=== PATIENT | female | born 1955 | race Caucasian/White ===

== ENCOUNTER 2017-03-05 09:06 | Inpatient (IN) | payer OTHER ==
[~2017-03-05] VITALS: Ht 162.6 cm; Wt 150.3 kg
[~2017-03-05 09:06] MED LIST: ACT15; ACT15 PO; ACT30 PO; ALBUTEROL0.09 MG/A2 IH; AMA1 PO; AMARYL4 MG PO; AMLODIPINE BESYL5 M1 PO; AMLODIPINE5 MG PO; ASPIR 8181 MG PO; ASPIR-LOW81 M1; ASPIRIN ADULT L81 MG PO; AUGMENTIN1 TA2 PO; CARVEDILOL25 M1 PO; CARVEDILOL25 MG PO; CORE25; COUMADIN5 MG PO; FAMILY PHARMAC325 MG PO; FER300; FUROCOT20 MG PO; FUROSEMIDE20 MG PO; FUROSEMIDE40 MG PO; GLIMEPIRIDE4 MG PO; GOOD SENSE ASPI81 M3 PO; K10 PO; L40 PO; LAC PO; LISINOPRIL40 MG PO; MEDDP PO; METFORMIN HCL850 MG PO; METFORMIN850 M1 PO; METOPROLOL TART25 M1 PO; NOR5; NOR5 PO; PIOGLITAZONE30 M1 PO; POTASSIUM CHLO10 MEQ PO; PRI20; PROTONIX40 MG PO; VITAMIN D22000 I1 PO; VITAMIN D2400 IU PO; ZES20; ZESTRIL20 PO; ZOC10 PO
--- NOTE | 2017-03-05 09:20 | NUR ---
PT C/O CHEST PAIN / SOB SINCE YESTERDAY. PLACED PT ON CM, VSS. PT'S SDIERAILS UP X 2. PT GIVEN CALL LIGHT. AWAITING DR RODRIGEZ.
--- NOTE | 2017-03-05 09:43 | NUR ---
DR MEAD AT BEDSIDE
--- NOTE | 2017-03-05 10:11 | NUR ---
PXRAY DONE AT BEDSIDE
[2017-03-05 10:18] LABS: BASOPHIL % 0.4 % (0-2)
[2017-03-05 10:23] LABS: CALCIUM 7.9 mg/dL (8.5-10.1); CARBON DIOXIDE 31.5 mmol/L (21-32); CHLORIDE SERUM 107 mmol/L (98-107); CREATININE SERUM 0.8 mg/dL (0.6-1.0); GFR1 > 60 mL/min; GLUCOSE SERUM 127 mg/dL (74-106); POTASSIUM SERUM 3.6 mmol/L (3.5-5.1); SODIUM SERUM 145 mmol/L (136-145)
[2017-03-05 10:28] LABS: ALBUMIN 3.4 g/dL (3.4-5.0); ALKALINE PHOSPHATASE 81 U/L (46-116); ALT/SGPT 30 U/L (14-59); AST/SGOT 16 U/L (15-37); BILIRUBIN TOTAL 1.39 mg/dL (0.20-1.00); TOTAL PROTEIN, SERUM 6.6 g/dL (6.4-8.2)
[2017-03-05 10:30] LABS: PLATELET COUNT 99 x10^3mcL (130-400); RED CELL DISTRIBUTION WIDTH 14.8 % (11.5-14.5)
[2017-03-05] MEDS ORDERED: [UNRECOGNIZED DRUG - OTHER] (11:16)
[2017-03-05] MEDS ORDERED: CARVEDILOL25 M1 PO (11:17)
--- NOTE | 2017-03-05 11:33 | NUR ---
MRSA SPECIMEN TAKEN AND SENT TO LAB
--- NOTE | 2017-03-05 11:55 | NUR ---
REPORT GIVEN TO FAY
[2017-03-05 12:22] VITALS: Ht 162.6 cm; Wt 150.3 kg
--- NOTE | 2017-03-05 12:30 | NUR ---
REPORT GIVEN TO PIPE AT BEDSIDE
--- NOTE | 2017-03-05 12:30 | NUR ---
RECEIVED PT FROM ER VIA WHEELCHAIR TO . PT ABLE TO AMBULATE WITH CANE TO BED. MADE COMFORTABLE, ORIENT TO ROOM AND CALL LIGHT SYSTEM. PT AWAKE AND ALERT. TEMP 97.1. TELE #13 PLACED SINUS RHYTHM RATE 70. REPORTS "CHEST PAIN GOING THROUGH TO MY BACK AND SOB STARTED LAST NIGHT 9PM. I TOOK NEBULIZER TX AND USE HOME OXYGEN 1.5L NC BUT IT DID NOT HELP. I WAS COUGHING UP GREEN PHLEGM. I HAD MY FAMILY BRING ME TO THE ER." DENIES RADIATION OF PAIN TO NECK OR ARM. ABD ROUNDED BUT SOFT, BOWEL TONES PRESENT. LBM THIS AM. VOIDING QS. INSTRUCTED WITH NEED FOR URINE SAMPLE. PT OBESE QC=326.6 LBS. NO PITTING EDEMA. PULSES PRESENT. SCD IN PLACE. SALINE LOCK LFA IN PLACE. SIDE RAILS UP X2. CALL LIGHT IN REACH.
[2017-03-05 13:29] VITALS: BP 152/63
--- NOTE | 2017-03-05 13:30 | NUR ---
PO MEDS GIVEN ORDERED FOR HTN. IVF NORMAL SALINE STARTED AT 100CC/HR VIA SITE LFA. FAMILY AT BEDSIDE.
[2017-03-05 13:37] LABS: T3 TOTAL 1.03 ng/mL
[2017-03-05 13:38] LABS: CHOLESTEROL/HDL RATIO 3.3; MAGNESIUM 1.9 mg/dL (1.8-2.4); PHOSPHOROUS 3.8 mg/dL (2.5-4.9)
[2017-03-05 13:43] LABS: FREE T4 1.51 ng/dL (0.76-1.46); FREE THYROXINE INDEX 2.5 ug/dL (1.4-4.5); T4(THYROXINE) 7.7 ug/dL (4.7-13.3)
[2017-03-05 14:23] VITALS: BP 152/63
--- NOTE | 2017-03-05 14:33 | NUR ---
JESS COMPLETED. RT ORDERS PER DR WANG.
[2017-03-05 14:50] VITALS: BP 152/63
--- NOTE | 2017-03-05 16:13 | NUR ---
DR WANG HERE. DISCUSSED PT "ALLERGY" TO LEVAQUIN AND CODEINE. DR STATES IS NOT AN ALLERGY BUT A SENSITIVITY. ORDERS TO PRE MED WITH BENADRYL 25MG IVP PRIOR. DISCUSSED WITH PT. AGREEABLE TO TAKE BENADRYL AT THIS TIME. MED WITH BENADRYL 25MG IVP. CALL LIGHT IN REACH.
--- NOTE | 2017-03-05 16:20 | NUR ---
MED WITH NORCO ES ORDERED. IV LEVAQUIN STARTED. WILL WATCH FOR S/S OF RASH OR ITCHING.
--- NOTE | 2017-03-05 17:30 | NUR ---
PT RESTING. STATES "CHEST PRESSURE IS BETTER 3/10. NO ITCHING OR RASH. I GOT SOME SLEEP." XRG=[id number]. IV CONTINUES PATENT.
--- NOTE | 2017-03-05 17:50 | NUR ---
PT UP TO BATHROOM AND VOIDED. SAMPLE TO LAB ORDERED. BACK TO BED. MADE COMFORTABLE. IV CONTINUES PATENT.
[2017-03-05 17:55] VITALS: BP 145/52
--- NOTE | 2017-03-05 18:10 | NUR ---
PT TOLERATED DINNER MEAL WELL. LABS DRAWN. REPORTS "JUST DULL PRESSURE TO CHEST." DENIES ITCHING OR RASH AT THIS TIME. CALL LIGHT IN REACH.
[2017-03-05 19:02] LABS: UA SPECIFIC GRAVITY 1.025 (1.005-1.035); microscopic required? YES; urine erythrocyte 2+ (NEGATIVE)
[2017-03-05 19:12] LABS: AMPHETAMINE QUAL UR NONE DETECTED (NEG <=1000)
--- NOTE | 2017-03-05 19:20 | NUR ---
PATIENT RECEIVED AWAKE, ALERT, AND ORIENTED X 4. NO DISTRESS NOTED. PATIENT DENIES SOB AND CHEST PAIN AT THIS TIME. IV SITE TO LEFT FOREARM, PATENT AND INTACT. IV FLUID INFUSING PER DOCTOR'S ORDER. BED IN LOWEST POSITION. CALL LIGHT WITHIN REACH. WILL CONTINUE TO MONITOR.
[2017-03-05 20:33] VITALS: BP 145/62
--- NOTE | 2017-03-06 05:13 | NUR ---
PATIENT RESTED THROUGHOUT THE NIGHT. NO DISTRESS NOTED. MEDICATED FOR PAIN WITH NORCO PO X 1 PER DOCTOR'S PRN ORDER. SAFETY AND COMFORT MEASURES MAINTAINED. BED IN LOWEST POSITION. CALL LIGHT WITHIN REACH. WILL CONTINUE TO MONITOR.
--- NOTE | 2017-03-06 05:39 | NUR ---
DR ZUÑIGA MADE AWARE OF PATIENT'S ABG VALUES. WILL CONTINUE TO MONITOR.
[2017-03-06 06:37] LABS: BASOPHIL % 0.5 % (0-2); RED CELL DISTRIBUTION WIDTH 14.4 % (11.5-14.5)
[2017-03-06 06:45] LABS: PLATELET COUNT 85 x10^3mcL (130-400)
[2017-03-06 06:47] LABS: PHOSPHOROUS 4.2 mg/dL (2.5-4.9)
--- NOTE | 2017-03-06 06:52 | NUR ---
PATIENT BO=277/78 HR=64. COVERED WITH LASIX 40MG AND AMLODIPINE 5MG PER DOCTOR KATHLEEN. WILL CONTINUE TO MONITOR AND ENDORSE TO NEXT SHIFT NURSE.
[2017-03-06 07:01] LABS: ALKALINE PHOSPHATASE 68 U/L (46-116); ALT/SGPT 22 U/L (14-59); AST/SGOT 16 U/L (15-37); CALCIUM 7.8 mg/dL (8.5-10.1); CARBON DIOXIDE 29.8 mmol/L (21-32); CHLORIDE SERUM 108 mmol/L (98-107); CREATININE SERUM 0.7 mg/dL (0.6-1.0); GFR1 > 60 mL/min; GLUCOSE SERUM 80 mg/dL (74-106); POTASSIUM SERUM 3.5 mmol/L (3.5-5.1); SODIUM SERUM 144 mmol/L (136-145)
[2017-03-06 07:02] LABS: TOTAL PROTEIN, SERUM 5.8 g/dL (6.4-8.2)
[2017-03-06 07:03] LABS: ALBUMIN 2.8 g/dL (3.4-5.0)
[2017-03-06 07:16] VITALS: BP 182/78
[2017-03-06 08:00] VITALS: BP 124/55
--- NOTE | 2017-03-06 08:00 | NUR ---
INITIAL ASSESSMENT PROVIDED. PATIENT ALERT AND ORIENTED X4 BREATHING UNLABORED AND NO COMPLAINTS OF PAIN AT THIS TIME. VS WNL. WILL CONTINUE TO MONITOR.
[2017-03-06 09:21] VITALS: BP 129/50
--- NOTE | 2017-03-06 09:37 | NUR ---
PATIENT READING BIBLE, ADMINISTETED MEDICATION ORDERED. NO COMPLAINTS OF SOB OR CHEST PAIN AT THIS TIME. BREATHING UNLABORED, NO SIGNS OF DISTRESS.
--- NOTE | 2017-03-06 11:20 | NUR ---
PT SITTING WATCHING TV. BREATHING UNLABORED NO SIGNS OF DISTRESS. NO COMPLAINTS OF PAIN AT THIS TIME
--- NOTE | 2017-03-06 12:43 | NUR ---
PATIENT SITTING UP, EATING. NO SIGNS OF DISTRESS, BREATHING UNLABORED, WILL CONTINUE TO MONITOR.
--- NOTE | 2017-03-06 13:40 | NUR ---
PATIENT FAMILY VISITING. SMILING AND TALKING WITH FAMILY BREATHING UNLABORED, NO COMPLAINTS OF PAIN AT THIS TIME.
[2017-03-06 17:49] VITALS: BP 158/55
[2017-03-06 18:12] VITALS: BP 180/77
--- NOTE | 2017-03-06 19:17 | NUR ---
PATIENT STATED SHE WAS STARTING TO FEEL LIGHT HEADED, BP 187/73, BP MEDS GIVEN (SEE EMAR). REMAINED AT PATIENT BEDSIDE, STATED SHE IS FEELING BETTER NOW, MINIMAL ASSISTANCE TO SIT UP IN CHAIR. WILL ENDORSE CARE.
--- NOTE | 2017-03-06 19:36 | NUR ---
RECEIVED PATIENT IN BED AWAKE, ALERT AND ORIENTED DENIES CHEST DISCOMFORT THIS TIME, BREATHING EASY AND NONLABOR. TELE# 13, NSR ON MONITOR. IV TO LFA INTACT AND INFUSING WELL. WILL CONTINUE TO MONITOR. CALL LIGHT WITHIN REACH.
--- NOTE | 2017-03-06 20:12 | NUR ---
TELE MONITOR DISCONTINUED PER MD
[2017-03-06 20:53] VITALS: BP 174/76
--- NOTE | 2017-03-06 21:25 | NUR ---
LATEST BP AFTER BP MEDS GIVEN-174/76, WILL CONTINUE TO MONITOR.
[2017-03-07] VITALS (7 sets, daily range): BP systolic 121–182; BP diastolic 35–76
--- NOTE | 2017-03-07 00:01 | NUR ---
IV TO LFA INFILTRATED AND REINSERTED TO RFA INTACT AND INFUSING WELL. WILL CONTINUE TO MONITOR.
--- NOTE | 2017-03-07 05:23 | NUR ---
SLEPT FAIRLY, CHECKED AT INTERVALS FOR NEEDS AND SAFETY. ALL NEEDS ATTENDED.
--- NOTE | 2017-03-07 06:15 | NUR ---
BLOOD PRESSURE CHECKED- 182/76, LOPRESSOR 12.5 MG PO AND NORVASC 5MG PO GIVEN. WILL ENDORSE CONTINOUS MONITORING TO AM SHIFT.
[2017-03-07 07:00] LABS: BASOPHIL % 0.5 % (0-2); RED CELL DISTRIBUTION WIDTH 14.5 % (11.5-14.5)
[2017-03-07 07:06] LABS: PLATELET COUNT 80 x10^3mcL (130-400)
[2017-03-07 07:34] LABS: CARBON DIOXIDE 30.4 mmol/L (21-32); CHLORIDE SERUM 106 mmol/L (98-107); CREATININE SERUM 0.6 mg/dL (0.6-1.0); GFR1 > 60 mL/min; GLUCOSE SERUM 95 mg/dL (74-106); POTASSIUM SERUM 3.6 mmol/L (3.5-5.1); SODIUM SERUM 142 mmol/L (136-145)
--- NOTE | 2017-03-07 07:50 | NUR ---
RECEIVED PATIENT AAOX4, HAVING US OF ABD DONE AT BEDSIDE, NO DISTRESS NOTED, ABLE TO COMMUNICATE AND FOLLOW COMMANDS AND DENIES CHEST PAIN. PALPABLE PULSES TO BUE/BLE AND SCDS IN PLACE. RESPIRAITONS EVEN AND UNLABORED, ON 2L O2 NC AND DENIES SOB. DENIES N/V/D. VOIDS FREELY WITH BRP USING CANE AND UP WITH MINIMAL ASSIST. DENIES PAIN. IV TO RFA CDI. BED TO LOWEST POSITION, CALL LIGHT AND BELONGINGS WITHIN REACH, AND WILL CONTINUE TO MONITOR.
--- NOTE | 2017-03-07 11:54 | NUR ---
PATIENT SITTING ON SIDE OF CHAIR AAOX4, NO DISTRSS NOTED, RESPIRAITONS EVEN AND UNLABORED, CALL LIGHT AND BELONGINGS WITHIN REACH, AND WILL CONTINUE TO MONITOR.
--- NOTE | 2017-03-07 14:31 | NUR ---
PATIENT SITTING UP IN BED AAOX4, NO DISTRESS NOTED, RESPIRATIONS EVEN AND UNLABORED, CALL LIGHT AND BELONGINGS WITHIN REACH, AND WILL CONTINUE TO MONITOR.
--- NOTE | 2017-03-07 15:30 | NUR ---
DIABETIC TEACHING DONE, ALL QUESTIONS AND CONCERNS ADDRESSED, CALL LIGHT WITHIN REACH, AND WILL CONTINUE TO MONITOR.
--- NOTE | 2017-03-07 18:13 | NUR ---
PER TO GIVE BENADRYL 25MG IV Q8H PRN BEFORE GIVING LEVAQUIN, WILL CONTINUE TO MONITOR.
--- NOTE | 2017-03-07 19:03 | NUR ---
PATIENT SITTING UP IN BED AAOX4, NO DISTRESS NOTED, RESPRIATIONS EVEN EVEN AND UNLABORED, ON 2L O2 NC AND DENIES SOB, IF TO RFA CDI, CALL LIGHT AND BELONGINGS WITHIN REACH, AND WILL ENDORSE TO NIGHT NURSE.
--- NOTE | 2017-03-07 19:50 | NUR ---
PT RESTING IN BED. AOX4. VERBAL WITH CLEAR SPEECH. MAKES NEEDS KNOWN. DENIES ANY SOB. ON O2 2L VIA NC 95%. LUNGS DIMINISHED. NO S/S OF RESPIRATORY DISTRESS NOTED. BOWEL SOUNDS ACTIVE. ABD SOFT AND ROUND. LAST BM 03/07/17. IV TO RIGHT FA PATENT AND INTACT. NO S/S OF INFECTION NOTED. SKIN WARM AND DRY. NO EDEMA NOTED. PULSES PALPABLE. DENIES ANY PAIN AT THIS TIME. NO S/S OF DISTRESS OR DISCOMFORT NOTED. CALL LIGHT WITHIN REACH. WILL CONTINUE TO MONITOR.
[2017-03-07] MEDS ORDERED: NOR10 PO (21:52)
[2017-03-07] MEDS ORDERED: LAC PO (21:54)
[2017-03-07] MEDS ORDERED: COMBIVENT RESPI1 SP1 IH (22:08)
--- NOTE | 2017-03-08 00:56 | NUR ---
PT STATES HEADACHE IS FEELING BETTER, BUT C/O NOT BEING ABLE TO SLEEP. DR. MACIAS UPDATED AND AWARE. AWAITING NEW ORDERS.
--- NOTE | 2017-03-08 03:12 | NUR ---
PT RESTING IN BED WITH EYES CLOSED. BREATHING EQUAL AND UNLABORED. NO S/S OF RESPIRATORY DISTRESS NOTED. REMAINS ON O2 2L VIA NC. IV INTACT TO RIGHT FA. RESTING COMFORTABLY WITH RELAXED FACIAL FEATURES. CALL LIGHT WITHIN REACH. WILL CONTINUE TO MONITOR.
[2017-03-08 05:25] VITALS: BP 142/73
--- NOTE | 2017-03-08 05:50 | NUR ---
PT RESTING WITH EYES CLOSED. EASILY AROUSED WHEN NAME CALLED. REMAINS ON O2 2L VIA NC. NO S/S OF RESPIRATORY DISTRESS NOTED. IV PATENT AND INFUSING WELL. PT SLEPT WELL AFTER GIVEN VISTARIL. SWALLOWED ROUTINE MEDICATIONS WITHOUT DIFFICULTY. NO S/S OF DISTRESS OR DISCOMFORT NOTED. CALL LIGHT WITHIN REACH. WILL CONTINUE TO MONITOR.
--- NOTE | 2017-03-08 06:31 | NUR ---
RECEIVED ABG RESULTS PH 7.40, PCO2 46.2, PCO2 46.2, PO2 61.3, HCO3 28.2. DR. BENZ UPDATED AND AWARE OF ABG RESULTS WHICH WAS DONE WITH PT ON VIA NC. NO NEW ORDERS.
[2017-03-08 06:36] LABS: BASOPHIL % 0.1 % (0-2)
[2017-03-08 06:41] LABS: PLATELET COUNT 102 x10^3mcL (130-400); RED CELL DISTRIBUTION WIDTH 14.6 % (11.5-14.5)
--- NOTE | 2017-03-08 07:15 | NUR ---
PT SEEN JUST CAME OUT FROM BATHROOM. PT WALKED WITH CANE WITH STEADY GAIT. PT STATED FEELING MILD SOB AFTER AMBULATORY. PT REPORT MILD CHEST PAIN WHEN PT FEELING SOB. PT BREATHING ON O2 2L VIA NC, EVEN, UNLABORED. IV SITE PATENT, INTACT. SALINE LOCK AT THIS TIME.
[2017-03-08 07:50] VITALS: BP 165/75
[2017-03-08 09:03] VITALS: BP 165/75
[2017-03-08] MEDS ORDERED: LEVOFLOXACIN500 M1 PO (09:16)
[2017-03-08 09:17] VITALS: BP 159/69
[2017-03-08] MEDS ORDERED: NOR10T PO (09:38)
[2017-03-08] MEDS ORDERED: COLACE100 MG PO (09:39)
== END 2017-03-08 10:33 | disposition home or self-care (01) | DRG 203 ==
LOC: ED 09:06 → DU 11:08 → MU 11:08 → DU 12:21 → MU 03-06 20:12
PROVIDERS: Emergency Medicine; ADMIT Family Medicine
DX: M94.0 Chondrocostal junction syndrome [Tietze] (principal); J96.01 Acute respiratory failure with hypoxia; E43 Unspecified severe protein-calorie malnutrition; I50.43 Acute on chronic combined systolic (congestive) and diastolic (congestive) heart failure; D69.6 Thrombocytopenia, unspecified; J96.02 Acute respiratory failure with hypercapnia; Z68.43 Body mass index [BMI] 50.0-59.9, adult; J44.1 Chronic obstructive pulmonary disease with (acute) exacerbation; E66.01 Morbid (severe) obesity due to excess calories; I07.1 Rheumatic tricuspid insufficiency; B18.2 Chronic viral hepatitis C; Z79.82 Long term (current) use of aspirin; Z79.84 Long term (current) use of oral hypoglycemic drugs; B19.20 Unspecified viral hepatitis C without hepatic coma; Z88.6 Allergy status to analgesic agent; Z88.1 Allergy status to other antibiotic agents
CPT/HCPCS: 36600; 80307; 82962; 83880; 84439; J1200; J1956; J2920; J7030; J7620; J7626; Q0177

== ENCOUNTER 2017-04-14 10:45 | Inpatient (IN) | payer OTHER ==
[~2017-04-14] VITALS: Ht 162.6 cm; Wt 150.8 kg
[~2017-04-14 10:45] MED LIST changes: +COLACE100 MG PO; +COMBIVENT RESPI1 SP1 IH; +LEVOFLOXACIN500 M1 PO; +NOR10 PO; +NOR10T PO; +[UNRECOGNIZED DRUG - OTHER]
[2017-04-14 11:51] LABS: BASOPHIL % 0.4 % (0-2)
[2017-04-14 11:57] LABS: CALCIUM 8.2 mg/dL (8.5-10.1); CARBON DIOXIDE 30.5 mmol/L (21-32); CHLORIDE SERUM 104 mmol/L (98-107); CREATININE SERUM 0.7 mg/dL (0.6-1.0); GFR1 > 60 mL/min; GLUCOSE SERUM 165 mg/dL (74-106); POTASSIUM SERUM 3.6 mmol/L (3.5-5.1); SODIUM SERUM 142 mmol/L (136-145)
[2017-04-14 12:01] LABS: ALBUMIN 3.7 g/dL (3.4-5.0); ALKALINE PHOSPHATASE 97 U/L (46-116); ALT/SGPT 27 U/L (14-59); AST/SGOT 22 U/L (15-37); BILIRUBIN TOTAL 1.7 mg/dL (0.20-1.00); LIPASE 133 IU/L (73-393); MAGNESIUM 1.8 mg/dL (1.8-2.4); TOTAL PROTEIN, SERUM 7.2 g/dL (6.4-8.2)
[2017-04-14 12:10] LABS: PLATELET COUNT 89 x10^3mcL (130-400); RED CELL DISTRIBUTION WIDTH 14.7 % (11.5-14.5)
[2017-04-14 12:30] LABS: microscopic required? YES; urine erythrocyte TRACE (NEGATIVE)
[2017-04-14 14:36] LABS: CHOLESTEROL/HDL RATIO 3.1
[2017-04-14 14:41] LABS: T3 TOTAL 1.01 ng/mL
[2017-04-14 14:46] LABS: FREE T4 1.65 ng/dL (0.76-1.46); FREE THYROXINE INDEX 3.3 ug/dL (1.4-4.5); T4(THYROXINE) 9.3 ug/dL (4.7-13.3)
[2017-04-14 14:49] VITALS: BP 170/83
[2017-04-14 19:01] VITALS: BP 143/74
[2017-04-14 20:58] VITALS: BP 152/68
[2017-04-15 05:19] VITALS: BP 153/60
[2017-04-15 06:15] LABS: BASOPHIL % 0.3 % (0-2)
[2017-04-15 06:34] LABS: CALCIUM 8.4 mg/dL (8.5-10.1); CARBON DIOXIDE 29.7 mmol/L (21-32); CHLORIDE SERUM 108 mmol/L (98-107); CREATININE SERUM 0.7 mg/dL (0.6-1.0); GFR1 > 60 mL/min; GLUCOSE SERUM 136 mg/dL (74-106); MAGNESIUM 2.1 mg/dL (1.8-2.4); PHOSPHOROUS 4.6 mg/dL (2.5-4.9); POTASSIUM SERUM 3.7 mmol/L (3.5-5.1); SODIUM SERUM 146 mmol/L (136-145)
[2017-04-15 06:43] LABS: PLATELET COUNT 108 x10^3mcL (130-400); RED CELL DISTRIBUTION WIDTH 14.8 % (11.5-14.5)
[2017-04-15 12:00] VITALS: BP 127/49
[2017-04-15 18:06] VITALS: BP 145/65
[2017-04-16 07:30] LABS: BASOPHIL % 0.3 % (0-2)
[2017-04-16 07:45] LABS: CALCIUM 7.8 mg/dL (8.5-10.1); CARBON DIOXIDE 29.1 mmol/L (21-32); CHLORIDE SERUM 107 mmol/L (98-107); CREATININE SERUM 0.9 mg/dL (0.6-1.0); GFR1 > 60 mL/min; GLUCOSE SERUM 155 mg/dL (74-106); MAGNESIUM 1.9 mg/dL (1.8-2.4); PHOSPHOROUS 3.8 mg/dL (2.5-4.9); POTASSIUM SERUM 3.3 mmol/L (3.5-5.1); SODIUM SERUM 144 mmol/L (136-145)
[2017-04-16 07:47] LABS: RED CELL DISTRIBUTION WIDTH 14.9 % (11.5-14.5)
[2017-04-16 07:48] LABS: PLATELET COUNT 94 x10^3mcL (130-400)
[2017-04-16 09:55] VITALS: BP 159/67
[2017-04-16 13:23] VITALS: BP 127/52
[2017-04-16 17:48] VITALS: BP 140/62
[2017-04-16 20:53] VITALS: BP 152/69
[2017-04-17 05:56] VITALS: BP 139/59
[2017-04-17 06:53] LABS: BASOPHIL % 0.5 % (0-2); RED CELL DISTRIBUTION WIDTH 14.4 % (11.5-14.5)
[2017-04-17 06:55] LABS: PLATELET COUNT 86 x10^3mcL (130-400)
[2017-04-17 07:07] LABS: CHLORIDE SERUM 107 mmol/L (98-107); CREATININE SERUM 0.7 mg/dL (0.6-1.0); GFR1 > 60 mL/min; GLUCOSE SERUM 118 mg/dL (74-106); MAGNESIUM 1.9 mg/dL (1.8-2.4); PHOSPHOROUS 3.3 mg/dL (2.5-4.9); POTASSIUM SERUM 3.4 mmol/L (3.5-5.1); SODIUM SERUM 143 mmol/L (136-145)
[2017-04-17 10:20] VITALS: BP 129/67
[2017-04-17 16:35] VITALS: BP 146/58
[2017-04-17 20:57] VITALS: BP 142/52
[2017-04-18 05:09] VITALS: BP 135/66
[2017-04-18 06:24] LABS: BASOPHIL % 0.3 % (0-2)
[2017-04-18 06:27] LABS: CALCIUM 8.3 mg/dL (8.5-10.1); CARBON DIOXIDE 32.3 mmol/L (21-32); CHLORIDE SERUM 107 mmol/L (98-107); CREATININE SERUM 0.7 mg/dL (0.6-1.0); GFR1 > 60 mL/min; GLUCOSE SERUM 113 mg/dL (74-106); PHOSPHOROUS 3.5 mg/dL (2.5-4.9); POTASSIUM SERUM 3.7 mmol/L (3.5-5.1); SODIUM SERUM 145 mmol/L (136-145)
[2017-04-18 07:16] LABS: PLATELET COUNT 89 x10^3mcL (130-400); RED CELL DISTRIBUTION WIDTH 14.7 % (11.5-14.5)
[2017-04-18 08:52] VITALS: BP 141/57
[2017-04-18] MEDS ORDERED: TOR10 PO (15:05)
[2017-04-18] MEDS ORDERED: PROTONIX40 MG/Pac1 PO (15:05)
[2017-04-18] MEDS ORDERED: COL100 PO (15:06)
[2017-04-18] MEDS ORDERED: DUL5 PO (15:06)
[2017-04-18 15:29] VITALS: BP 141/57
== END 2017-04-18 18:43 | disposition home health service (06) | DRG 227 ==
LOC: ED 10:45 → DU 13:51 → MU 13:51 → DU 14:33 → MU 04-15 15:18
PROVIDERS: Emergency Medicine; Surgery; ADMIT Family Medicine
PROC: 0WQF0ZZ Repair Abdominal Wall, Open Approach (ICD-10-PCS; principal; 2017-04-15 07:30)
DX: K42.0 Umbilical hernia with obstruction, without gangrene (principal); D68.69 Other thrombophilia; N17.0 Acute kidney failure with tubular necrosis; E11.51 Type 2 diabetes mellitus with diabetic peripheral angiopathy without gangrene; D69.6 Thrombocytopenia, unspecified; Z68.43 Body mass index [BMI] 50.0-59.9, adult; J44.9 Chronic obstructive pulmonary disease, unspecified; I10 Essential (primary) hypertension; E78.5 Hyperlipidemia, unspecified; B18.2 Chronic viral hepatitis C; F11.21 Opioid dependence, in remission; Z79.82 Long term (current) use of aspirin; Z87.891 Personal history of nicotine dependence; Z79.84 Long term (current) use of oral hypoglycemic drugs
CPT/HCPCS: 82962; 83880; 84439; 94150; 97110-GP; 97116-GP; 97530-GP; J0690; J1885; J2250; J2270; J2405; J3010; J3490; J7030; J7040; J7042; P9035; Q0092

== ENCOUNTER 2017-05-12 10:09 | Emergency (ER) | payer OTHER ==
[~2017-05-12] VITALS: Ht 162.6 cm; Wt 148.8 kg
[~2017-05-12 10:09] MED LIST changes: +COL100 PO; +DUL5 PO; +PROTONIX40 MG/Pac1 PO; +TOR10 PO
[2017-05-12 11:18] LABS: BASOPHIL % 0.5 % (0-2)
[2017-05-12 11:57] LABS: CALCIUM 8.4 mg/dL (8.5-10.1); CARBON DIOXIDE 29.9 mmol/L (21-32); CHLORIDE SERUM 108 mmol/L (98-107); CREATININE SERUM 0.9 mg/dL (0.6-1.0); GFR1 > 60 mL/min; GLUCOSE SERUM 90 mg/dL (74-106); POTASSIUM SERUM 3.9 mmol/L (3.5-5.1); SODIUM SERUM 145 mmol/L (136-145)
[2017-05-12 12:00] LABS: PLATELET COUNT 93 x10^3mcL (130-400); RED CELL DISTRIBUTION WIDTH 14.6 % (11.5-14.5)
[2017-05-12 12:01] LABS: ALBUMIN 3.5 g/dL (3.4-5.0); ALKALINE PHOSPHATASE 90 U/L (46-116); ALT/SGPT 33 U/L (14-59); AST/SGOT 33 U/L (15-37); BILIRUBIN TOTAL 0.98 mg/dL (0.20-1.00); LIPASE 160 IU/L (73-393)
[2017-05-12 17:01] VITALS: BP 154/64
== END 2017-05-12 19:55 | disposition home or self-care (01) ==
LOC: ED 10:09
PROVIDERS: Emergency Medicine
DX: R07.89 Other chest pain (principal); R19.7 Diarrhea, unspecified; R06.02 Shortness of breath; R05 Cough; R42 Dizziness and giddiness; J44.9 Chronic obstructive pulmonary disease, unspecified; I11.0 Hypertensive heart disease with heart failure; I50.9 Heart failure, unspecified; E11.9 Type 2 diabetes mellitus without complications; E66.01 Morbid (severe) obesity due to excess calories; Z88.5 Allergy status to narcotic agent; Z79.899 Other long term (current) drug therapy; Z88.1 Allergy status to other antibiotic agents; Z79.84 Long term (current) use of oral hypoglycemic drugs; Z79.82 Long term (current) use of aspirin; Z87.891 Personal history of nicotine dependence; Z98.890 Other specified postprocedural states
CPT/HCPCS: 82962; 83880; J1885; J7030; Q0092; Q9967

== ENCOUNTER 2017-07-04 08:12 | Emergency (ER) | payer OTHER ==
[~2017-07-04] VITALS: Ht 162.6 cm; Wt 146.1 kg
[2017-07-04 09:23] LABS: microscopic required? NO
[2017-07-04 09:33] LABS: urine erythrocyte NEGATIVE (NEGATIVE)
[2017-07-04 09:36] LABS: BASOPHIL % 0.6 % (0-2)
[2017-07-04 09:42] LABS: CALCIUM 8.3 mg/dL (8.5-10.1); CARBON DIOXIDE 32.1 mmol/L (21-32); CHLORIDE SERUM 106 mmol/L (98-107); CREATININE SERUM 0.7 mg/dL (0.6-1.0); GFR1 > 60 mL/min; GLUCOSE SERUM 103 mg/dL (74-106); POTASSIUM SERUM 3.4 mmol/L (3.5-5.1); SODIUM SERUM 144 mmol/L (136-145)
[2017-07-04 09:44] LABS: PLATELET COUNT 108 x10^3mcL (130-400); RED CELL DISTRIBUTION WIDTH 15.2 % (11.5-14.5)
[2017-07-04 09:46] LABS: ALBUMIN 3.5 g/dL (3.4-5.0); ALKALINE PHOSPHATASE 77 U/L (46-116); ALT/SGPT 46 U/L (14-59); AMYLASE 31 U/L (25-115); AST/SGOT 34 U/L (15-37); LIPASE 102 IU/L (73-393)
[2017-07-04 12:16] VITALS: BP 121/62
== END 2017-07-04 12:16 | disposition home or self-care (01) ==
LOC: ED 08:12
PROVIDERS: Emergency Medicine
DX: R10.9 Unspecified abdominal pain (principal); R63.0 Anorexia; E11.9 Type 2 diabetes mellitus without complications; I10 Essential (primary) hypertension; E78.00 Pure hypercholesterolemia, unspecified; B19.20 Unspecified viral hepatitis C without hepatic coma; E66.9 Obesity, unspecified; J44.9 Chronic obstructive pulmonary disease, unspecified; I73.9 Peripheral vascular disease, unspecified; Z88.5 Allergy status to narcotic agent; Z88.8 Allergy status to other drugs, medicaments and biological substances
CPT/HCPCS: 83880; J1885

== ENCOUNTER 2017-07-19 18:01 | Inpatient (IN) | payer OTHER ==
[~2017-07-19] VITALS: Ht 162.6 cm; Wt 147.0 kg
[2017-07-19 21:06] LABS: CALCIUM 8.6 mg/dL (8.5-10.1); CHLORIDE SERUM 105 mmol/L (98-107); CREATININE SERUM 0.8 mg/dL (0.6-1.0); GFR1 > 60 mL/min; GLUCOSE SERUM 116 mg/dL (74-106); POTASSIUM SERUM 4.1 mmol/L (3.5-5.1); SODIUM SERUM 141 mmol/L (136-145)
[2017-07-19 21:10] LABS: ALBUMIN 3.4 g/dL (3.4-5.0); ALKALINE PHOSPHATASE 93 U/L (46-116); ALT/SGPT 28 U/L (14-59); AMYLASE 39 U/L (25-115); AST/SGOT 23 U/L (15-37); BILIRUBIN TOTAL 0.9 mg/dL (0.20-1.00); LIPASE 144 IU/L (73-393); TOTAL PROTEIN, SERUM 6.9 g/dL (6.4-8.2)
[2017-07-19 21:21] LABS: BASOPHIL % 0.4 % (0-2)
[2017-07-19 21:24] LABS: PLATELET COUNT 98 x10^3mcL (130-400); RED CELL DISTRIBUTION WIDTH 14.6 % (11.5-14.5)
[2017-07-19] MEDS ORDERED: CARVEDILOL25 M1 PO (22:17)
[2017-07-19] MEDS ORDERED: METFORMIN HCL850 MG PO (22:17)
[2017-07-19] MEDS ORDERED: ASPIR LOW81 MG PO (22:18)
[2017-07-19] MEDS ORDERED: POTASSIUM CHLO10 MEQ PO (22:18)
[2017-07-19] MEDS ORDERED: GLIMEPIRIDE4 M1 PO (22:18)
[2017-07-19] MEDS ORDERED: PANTOPRAZOLE SO40 M1 PO (22:19)
[2017-07-19] MEDS ORDERED: NOR10 PO (22:19)
[2017-07-19] MEDS ORDERED: FUROSEMIDE40 MG PO (22:19)
[2017-07-19] MEDS ORDERED: ACT30 PO (22:19)
[2017-07-19] MEDS ORDERED: LISINOPRIL40 MG PO (22:20)
[2017-07-19 22:49] LABS: MAGNESIUM 2.2 mg/dL (1.8-2.4); PHOSPHOROUS 4.3 mg/dL (2.5-4.9)
[2017-07-19 23:19] VITALS: BP 166/76
[2017-07-20 01:30] VITALS: BP 166/76
[2017-07-20 02:20] LABS: microscopic required? NO
[2017-07-20 02:36] LABS: UA SPECIFIC GRAVITY 1.015 (1.005-1.035); urine erythrocyte NEGATIVE (NEGATIVE)
[2017-07-20 02:49] LABS: AMPHETAMINE QUAL UR NONE DETECTED (NEG <=1000)
[2017-07-20 04:35] VITALS: BP 163/76
[2017-07-20 06:20] LABS: BASOPHIL % 0.4 % (0-2); CALCIUM 8.3 mg/dL (8.5-10.1); CARBON DIOXIDE 28.2 mmol/L (21-32); CHLORIDE SERUM 106 mmol/L (98-107); CREATININE SERUM 0.9 mg/dL (0.6-1.0); GFR1 > 60 mL/min; GLUCOSE SERUM 234 mg/dL (74-106); POTASSIUM SERUM 4.1 mmol/L (3.5-5.1); SODIUM SERUM 142 mmol/L (136-145)
[2017-07-20 06:55] LABS: PLATELET COUNT 97 x10^3mcL (130-400); RED CELL DISTRIBUTION WIDTH 15.2 % (11.5-14.5)
[2017-07-20 10:27] VITALS: BP 172/72
[2017-07-20 13:49] VITALS: BP 156/55
[2017-07-20 16:39] VITALS: BP 139/70
[2017-07-20 21:42] VITALS: BP 147/84
[2017-07-21 06:21] LABS: BASOPHIL % 0 % (0-2); CALCIUM 8.4 mg/dL (8.5-10.1); CARBON DIOXIDE 28.5 mmol/L (21-32); CHLORIDE SERUM 107 mmol/L (98-107); CREATININE SERUM 0.7 mg/dL (0.6-1.0); GFR1 > 60 mL/min; GLUCOSE SERUM 195 mg/dL (74-106); PLATELET COUNT 99 x10^3mcL (130-400); POTASSIUM SERUM 3.6 mmol/L (3.5-5.1); RED CELL DISTRIBUTION WIDTH 15.1 % (11.5-14.5); SODIUM SERUM 143 mmol/L (136-145)
[2017-07-21 08:10] VITALS: BP 155/68
[2017-07-21 14:15] VITALS: BP 148/58
[2017-07-21 17:38] VITALS: BP 154/75
[2017-07-21 21:39] VITALS: BP 151/60
[2017-07-22 05:52] VITALS: BP 126/75
[2017-07-22 07:23] LABS: CALCIUM 8.5 mg/dL (8.5-10.1); CARBON DIOXIDE 28.3 mmol/L (21-32); CHLORIDE SERUM 105 mmol/L (98-107); CREATININE SERUM 0.7 mg/dL (0.6-1.0); GFR1 > 60 mL/min; GLUCOSE SERUM 187 mg/dL (74-106); POTASSIUM SERUM 3.6 mmol/L (3.5-5.1); SODIUM SERUM 141 mmol/L (136-145)
[2017-07-22 08:20] LABS: BASOPHIL % 0.1 % (0-2); PLATELET COUNT 115 x10^3mcL (130-400); RED CELL DISTRIBUTION WIDTH 15.2 % (11.5-14.5)
[2017-07-22 10:06] VITALS: BP 131/74
[2017-07-22 14:34] VITALS: BP 145/75
[2017-07-22] MEDS ORDERED: XALATAN2.5 ML OU (15:22)
[2017-07-22] MEDS ORDERED: SYSTANE ULTRA 010 ML OP (15:24)
[2017-07-22] MEDS ORDERED: IPRATROPIUM BROM3 M2 NEB (15:32)
[2017-07-22 17:00] VITALS: BP 143/72
[2017-07-22] MEDS ORDERED: MEDDP PO (18:18)
== END 2017-07-22 17:25 | disposition home or self-care (01) | DRG 140 ==
LOC: ED 18:01 → DU 22:00
PROVIDERS: Emergency Medicine; ADMIT Family Medicine
DX: J44.1 Chronic obstructive pulmonary disease with (acute) exacerbation (principal); N17.0 Acute kidney failure with tubular necrosis; Z68.43 Body mass index [BMI] 50.0-59.9, adult; D68.69 Other thrombophilia; Z99.81 Dependence on supplemental oxygen; I11.0 Hypertensive heart disease with heart failure; I50.9 Heart failure, unspecified; E66.01 Morbid (severe) obesity due to excess calories; M94.0 Chondrocostal junction syndrome [Tietze]; B18.2 Chronic viral hepatitis C; Z87.891 Personal history of nicotine dependence; Z79.84 Long term (current) use of oral hypoglycemic drugs; Z88.6 Allergy status to analgesic agent; Z88.8 Allergy status to other drugs, medicaments and biological substances; H26.9 Unspecified cataract; Z83.3 Family history of diabetes mellitus; Z82.49 Family history of ischemic heart disease and other diseases of the circulatory system; I48.91 Unspecified atrial fibrillation; K21.9 Gastro-esophageal reflux disease without esophagitis
CPT/HCPCS: 82962; 83880; J2270; J2405; J2543; J2920; J2930; J3490; J7030; J7613; J7620; J7644; Q0092

== ENCOUNTER 2017-07-31 18:16 | Inpatient (IN) | payer OTHER ==
[~2017-07-31] VITALS: Ht 162.6 cm; Wt 145.4 kg
[~2017-07-31 18:16] MED LIST changes: +ASPIR LOW81 MG PO; +GLIMEPIRIDE4 M1 PO; +IPRATROPIUM BROM3 M2 NEB; +PANTOPRAZOLE SO40 M1 PO; +SYSTANE ULTRA 010 ML OP; +XALATAN2.5 ML OU
--- NOTE | 2017-07-31 18:38 | NUR ---
PT C/O CHEST PAIN. PT ATE MEAL OF STEAK, ONIONS, CHILI, RICE & A SALAD THEN DEVELOPED DULL PRESSURE PAIN, NON-RADIATING, CURRENTLY 9/10 X APPROX 2 HOURS. PT SLOW TO RESPOND, APPEARS DISTRACTED, SAYING "OH, MY GOD." (+)FACIAL GRIMACING. FEELS A LITTLE WEAK BUT DENIES ANY OTHER C/O. FEET ARE PURPLE; PT STATES "THAT'S THE WAY THEY ARE." ADMITS TO DIABETES.
--- NOTE | 2017-07-31 19:02 | NUR ---
DR DOMINGUEZ AT BEDSIDE.
--- NOTE | 2017-07-31 19:09 | NUR ---
PT MOVED FROM OB BED TO BED 5.
--- NOTE | 2017-07-31 19:15 | NUR ---
REPORT OFF TO ADAIR COLON.
--- NOTE | 2017-07-31 19:28 | NUR ---
DUE MEDS GIVEN, TOLERATED WELL. REPORT GIVEN TO ELLY COLON FOR CONTINUITY OF CARE.
[2017-07-31 19:39] LABS: BASOPHIL % 0.5 % (0-2)
[2017-07-31 19:45] LABS: CALCIUM 8.2 mg/dL (8.5-10.1); CARBON DIOXIDE 27.8 mmol/L (21-32); CREATININE SERUM 1.2 mg/dL (0.6-1.0); POTASSIUM SERUM 3.9 mmol/L (3.5-5.1)
[2017-07-31 19:50] LABS: ALBUMIN 3.3 g/dL (3.4-5.0); BILIRUBIN TOTAL 1.3 mg/dL (0.20-1.00); TOTAL PROTEIN, SERUM 6.8 g/dL (6.4-8.2)
[2017-07-31 19:53] LABS: RED CELL DISTRIBUTION WIDTH 15.4 % (11.5-14.5)
[2017-07-31 19:54] LABS: PLATELET COUNT 95 x10^3mcL (130-400)
--- NOTE | 2017-07-31 20:17 | NUR ---
PATIENT COMPLAINT SHE STILL HAS CHEST PAIN, HEART RATE IS 161. PATIENT MEDICATED WITH CARDIZEM. MD NOTIFIED RE -CHEST PAIN. REPEAT EKG WAS DONE.
[2017-07-31 20:20] LABS: MAGNESIUM 2.1 mg/dL (1.8-2.4); T4(THYROXINE) 8.7 ug/dL (4.7-13.3)
--- NOTE | 2017-07-31 20:59 | NUR ---
PATIENT MEDICATED WITH ASA AND ATIVAN. SALINE AT 500 ML/HR
--- NOTE | 2017-07-31 21:30 | NUR ---
REPORT WAS GIVEN TO MORENA. PATIENT TRANSPORTED TO ROOM 201B
--- NOTE | 2017-07-31 21:35 | NUR ---
[facility]IVED PT FROM [facility], CAME IN DUE TO CHEST PAIN AFTER EATING. AAOX4. DENIES HEADACHE/DIZZINESS. NO SOB NOTED, LUNG SOUNDS DIMINISHED ON AUSCULTATION, ON 2LPM/NC, O2 SAT=96%. C/O 5/10 MID CHEST PAIN, NON-RADIATING, DESCRIBED HEAVINESS. PT IS AFIB ON THE MONITOR, HR AT 141. C/O HEARTBURN. DENIES NAUSEA/VOMITING/ABDOMINAL PAIN. W/ DARK BROWN DISCOLORATION ON BLE. W/ +1 EDEMA ON BLE. PULSES ARE PALPABLE. IV SITE PATENT AND INTACT. SIDE RAILS UPX2. CALL LIGHT ON REACH. ENDORSED TO PRIMARY NURSE FOR CONTINUITY OF CARE.
[2017-07-31 21:40] LABS: CHOLESTEROL/HDL RATIO 2.3
--- NOTE | 2017-07-31 21:40 | NUR ---
BEDSID HANDS OFF RECEIVED FROM MORENA-DARLENE, PATIENT AAOX4, SPEECH CLEAR. PATIENT ACQUIANTED TO BEDSIDE EQUIPMENT AND UNIT POLICIES. SAFTY PREC INITIATED. CALL LIGHT IN REACH. STILL COMPLAINED OF HEARTBURN. DULL CHEST PRESSURE AND PAIN. ATRIAL FIB UNCONTROLLED RATE ON THE MONITOR, HR RANGES FROM 120-140. WILL CONTINUE TO MONITOR.
[2017-07-31 21:42] VITALS: BP 125/70
[2017-07-31 21:45] LABS: FREE T4 1.61 ng/dL (0.76-1.46); FREE THYROXINE INDEX 3.2 ug/dL (1.4-4.5); T4(THYROXINE) 8.3 ug/dL (4.7-13.3)
[2017-07-31 21:50] LABS: T3 TOTAL 0.87 ng/mL
[2017-07-31 21:52] VITALS: Ht 162.6 cm; Wt 145.4 kg
--- NOTE | 2017-07-31 21:53 | NUR ---
DR BELTRAN INFORMED ABOUT PATIENT REQUEST FOR BREATHING TREATMENT, HER EYE DROP MEDS, MED FOR HEART BURN.
[2017-07-31 22:32] VITALS: BP 125/70
--- NOTE | 2017-07-31 22:50 | NUR ---
BS CHECKED VIA NOVA MACHINE WAS 195 PATIENT COVERED PER SLIDING SCALE PARAMETER.
--- NOTE | 2017-07-31 22:50 | NUR ---
SCHEDULED MEDS ADMINISTERED, PATIENT INFORMED ABOUT EACH MEDS ACTIONS AND PURPOSES PRIOR. IS IN A SITTING POSITION. NO DIFF SWALLOWING. JELLO GIVEN.
--- NOTE | 2017-07-31 23:16 | NUR ---
PATIENT REQUESTED IV SITE TO BE CHANGED , INSERTED NEW SITE TO RT FOREARM X1 ATTEMPT.
--- NOTE | 2017-07-31 23:31 | NUR ---
ATRIAL FIB UNCONTROLLED RATE, HR-120-140'S NON SUSTAINED, PATIENT DENIED CHEST PAINS BUT COMPLAINED OF HEARTBURN, PRIOLOSEC GIVEN EARLIER. DR BELTRAN AWARE WILL CONTINUE TO MONITOR.
--- NOTE | 2017-08-01 00:44 | NUR ---
PATIENT COMPLAINED OF ABDOMINAL PAIN RATED AT 5/10, MEDICATED PRN WILL MONITOR EFFECTIVENESS.
--- NOTE | 2017-08-01 01:37 | NUR ---
PATIENT CHECKED THIS TIME EYES CLOSED, AWAKEN EASILY STATED PAIN IS SLOWLY SUBSIDING. ATRIAL FIB ON THE MONITOR., RATE 100-[address] RUBY PHILLIPS ABOUT RHYTHM AND RATE.
[2017-08-01 03:07] LABS: BASOPHIL % 0.6 % (0-2)
[2017-08-01 03:20] LABS: CALCIUM 7.9 mg/dL (8.5-10.1); CARBON DIOXIDE 30.7 mmol/L (21-32); CREATININE SERUM 1.3 mg/dL (0.6-1.0); POTASSIUM SERUM 3.9 mmol/L (3.5-5.1)
[2017-08-01 03:21] LABS: PLATELET COUNT 92 x10^3mcL (130-400); RED CELL DISTRIBUTION WIDTH 15.5 % (11.5-14.5)
[2017-08-01 03:36] LABS: UA SPECIFIC GRAVITY >=1.030 (1.005-1.035); microscopic required? YES; urine erythrocyte NEGATIVE (NEGATIVE)
[2017-08-01 04:22] LABS: AMPHETAMINE QUAL UR NONE DETECTED (NEG <=1000)
[2017-08-01 05:23] VITALS: BP 104/58
--- NOTE | 2017-08-01 05:37 | NUR ---
SCHEDULED MEDS ADMINISTERED, BS 71, PATIENT AAOX4, WILL GIVE ORANGE JUICE.
--- NOTE | 2017-08-01 06:28 | NUR ---
PATIENT SLEPT OFF AND ON SINCE ARRIVAL TO THE FLOOR, NO CHEST PAIN BUT HAD HEARTBURN ,MEDICATED AND RECEIVED RELIEF. IV SITE NO SIGN OF INFILTRATION. ATRIAL FIB ON THE MONITOR RATE 100-120. SAFETY MAINTAINED WILL CONTINUE TO MONITOR.
--- NOTE | 2017-08-01 08:17 | NUR ---
PATIENT RECEIVED IN BED SITTING ATTENDING TO HER BREAKFAST, PATIENT REMAINED AAOX4, SPEECH CLEAR. NO RESP. DISTRESS, O2 MAINTAINED AT 2LNC SAT 97%, DENIES SOB, JUST GOT DONE WITH BREATHING TREATMENT AND SHE STATED IT HELPED HER A LOT. OCC NON PRODUCTIVE COUGH, DENIES SOB ON EXERTION.DENIES CHEST PAINS NOR DISCOMFORTS, SR ON THE MONITOR, HR=69BPM, RHYTHM REGULAR.ABDOMEN OBSE ACTIVE BS, PATIENT STATED HAVING HEARTBURN OFF AND ON, TOLERATED CCHO DIET. VOIDED WITHOUT DIFF. PATIENT STATED WITH GENERALIZED WEAKNESS, ABLE TO AMBULATE TO THE BR WITH STEADY SLOW GAIT. IV SITE NO SIGN OF INFILTRATION. HEPLOCK TO LEFT HAND INTACT. EDEMA TO BLE PULSES PALPABLE. APPLIED SCD'S TO BLE AND INFORMED PATIENT OF ITS PURPOSE AND IMPORTANCE BEING FOR DVT PROPHYLAXIS. SAFETY/FALL PRECAUTIONS MAINTAINED. WILL CONTINUE TO MONITOR.
--- NOTE | 2017-08-01 08:30 | NUR ---
DR DOBSON AND RESIDENT AT THE BEDSIDE DOING THERE ROIUNDS. PATIENT UPDATED WITH PLAN OF ACRE4. ALL QUESTIONS AND CONCERNS ADDRESSED AND ANSWERED.
--- NOTE | 2017-08-01 09:19 | NUR ---
SCHEDULED MEDS ADMINISTERED, PATIENT INFORMED ABOUT EACH MEDS ACTIONS AND PURPOSES PRIOR. NO DIFF [id number]. WILL ALSO NOTIFY MD OF LOW BP.
--- NOTE | 2017-08-01 09:27 | NUR ---
DR MUSTAFA MADE AWARE ABOUT BP THIS AM 92/49, [id number]. AWAITS ORDER.
[2017-08-01 09:57] VITALS: BP 91/49
[2017-08-01 10:00] VITALS: BP 108/55
--- NOTE | 2017-08-01 11:58 | NUR ---
PATIENT VOIDED, UA COLLECVTED AND SEND TO LAB.
--- NOTE | 2017-08-01 12:14 | NUR ---
REPORT GIVEN TO GRAHAM, ASSUMING CARE OF THIS PATIENT.
--- NOTE | 2017-08-01 12:15 | NUR ---
RECEIVED PT SITTING ON THE EDGE OF THE BED, AAOX4. PT IS RECEIVING BREATHING TREATMENT. NSR ON THE MONITOR. DENIES CHEST PAIN/PRESSURE. CALL LIGHT ON REACH. IV SITES PATENT AND INTACT. WILL CONT TO MONITOR
[2017-08-01 13:48] VITALS: BP 138/64
--- NOTE | 2017-08-01 15:10 | NUR ---
CHAPERONED PT TO AMBULATE IN THE HALLWAY, STEADY GAIT NOTED. NO S/S OF SOB NOTED. PT STATED THAT SHE HAD 2/10 MID CHEST PAIN WHEN SHE WAS ALMOST DONE ON THE LAP. ASSISTED PT BACK TO BED, PT SITTING ON THE EDGE OF THE BED, PLACED BACK ON 2LPM/NC.
--- NOTE | 2017-08-01 16:50 | NUR ---
PT SITTING ON THE EDGE OF THE BED, NO C/O SOB AND PAIN. IV SITES PATENT AND INTACT. SIDE RAILS UPX2. CALL LIGHT ON REACH. WILL CONT TO MONITOR
[2017-08-01 17:46] VITALS: BP 133/68
--- NOTE | 2017-08-01 19:06 | NUR ---
AOX4. TELE # 21, NSR. LUNG SOUNDS DIMINISHED ON NC @ 2L. RADIAL AND PEDAL PULSES PALPABLE, WEAK PEDAL PULSES WITH EDEMA NOTED TO BLE. REDNESS NOTED TO LEFT EYE. BOWEL SOUNDS ACTIVE. VOIDS WITHOUT DIFFICULTY. MULTIPLE BRUISES ON BUE, OTHERWISE SKIN INTACT. DENIES C/P PAIN AT THIS TIME. NS @ 10 ML/HR TO R FA, PATENT AND INFUSING. S/L TO L HAND, NO REDNESS OR SWELLING. BED IN LOW POSITION, CALL LIGHT IN REACH. INSTRUCTED TO CALL FOR ASSISTANCE.
--- NOTE | 2017-08-01 19:11 | NUR ---
BEDSIDE REPORT GIVEN TO DARLENE CASILLAS FOR CONTINUITY OF CARE. PT SITTING ON THE EDGE OF THE BED, NO C/O SOB AND PAIN.
[2017-08-01 20:44] VITALS: BP 123/52
--- NOTE | 2017-08-01 22:30 | NUR ---
NA: 128, DR. ONEAL NOTIFIED VIA [employer].
--- NOTE | 2017-08-02 01:01 | NUR ---
BREATHING EVEN AND UNLABORED. NO ACUTE DISTRESS NOTED. WILL CONTINUE TO MONITOR.
[2017-08-02 05:48] VITALS: BP 116/58
--- NOTE | 2017-08-02 06:09 | NUR ---
PT C/O RASH TO GROIN AREA, SKIN WAS BROKEN BY SCRATCHING. PT REQUEST OINTMENT. DR. ONEAL NOTIFIED. NO OTHER ACUTE CHANGES DURING SHIFT. WILL ENDORSE TO ONCOMING RN.
[2017-08-02 07:23] LABS: BASOPHIL % 0.5 % (0-2)
[2017-08-02 07:24] LABS: PLATELET COUNT 68 x10^3mcL (130-400); RED CELL DISTRIBUTION WIDTH 15.5 % (11.5-14.5)
--- NOTE | 2017-08-02 07:30 | NUR ---
RECEIVED PT IN BED, A/A/O X 4, CALM, COOPERATIVE. PT HAS L EYE REDNESS, BUT NO C/O PAIN OR DISCOMFORT. ON TELE # 21, SHOWING NSR, WITH HR 70, NO CHEST PAIN OR DISCOMFORT. CLEMENTE RADIAL AND PEDAL PULSES PRESENT, EDEMA +1 ON BLE, CAP REFILL < 3 SECS, SCD IN PLACE, ON XARELTO AND FUROSEMIDE. BUL CLEAR, BLL DIMINISHED, CHEST RISING EVENLY, ON 2LPM/NC, SPO2 97%, NO RESPIRATORY DISTRESS. ABD SOFT, ROUND, NON-TENDER, NORMOACTIVE BOWEL SOUNDS X 4 QUADS, LAST BM 08/01/17. VOIDS FREELY, NO DYSURIA. GENERALIZED WEAKNESS, ABLE TO AMBULATE WITH CANE, SLOW GAIT. GROIN RASH, USE INTERDRY TO KEEP AREA DRY AND CLEAN, AND BUE BRUISING (PT ON XARELTO AND FUROSEMIDE). DENIES PAIN AT THIS TIME. IV SITE TO [facility] AND CDI, RUNNING NS 10 ML/HR. SIDE RAILS UP X 2, CALL LIGHT WITHIN REACH, BED IN LOW POSITION. WILL CONTINUE TO MONITOR.
[2017-08-02 07:31] LABS: CALCIUM 8.3 mg/dL (8.5-10.1); CARBON DIOXIDE 30.9 mmol/L (21-32); CHLORIDE SERUM 108 mmol/L (98-107); CREATININE SERUM 0.8 mg/dL (0.6-1.0); GFR1 > 60 mL/min; GLUCOSE SERUM 87 mg/dL (74-106); MAGNESIUM 2.1 mg/dL (1.8-2.4); PHOSPHOROUS 4.3 mg/dL (2.5-4.9); POTASSIUM SERUM 4.2 mmol/L (3.5-5.1); SODIUM SERUM 142 mmol/L (136-145)
--- NOTE | 2017-08-02 08:05 | NUR ---
DR PURDY, RESIDENTS, CHARGE NURSE, AND ASSIGNED NURSE CMAE IN TO SEE PT; DISCUSSED PLAN OF CARE FOR TODAY, INCLUDING D/C HOME TODAY; ALL QUESTIONS WERE ANSWERED. PT VERBALIZED UNDERSTANDING.
[2017-08-02] MEDS ORDERED: IPRATROPIUM BROM3 M2 NEB (12:31)
[2017-08-02] MEDS ORDERED: CARVEDILOL25 M1 PO ×2 (12:33→13:19)
[2017-08-02] MEDS ORDERED: MEDDP PO (12:34)
[2017-08-02] MEDS ORDERED: MYCOC TOP (12:38)
[2017-08-02] MEDS ORDERED: XARELTO10 M1 PO (12:54)
[2017-08-02 13:48] VITALS: BP 148/67
[2017-08-02 17:24] VITALS: BP 136/72
--- NOTE | 2017-08-02 17:30 | NUR ---
PT GIVEN DISCHARGE PACKET; DISCUSSED CURRENT STAY, MEDICATIONS, LAB RESULTS, FUTURE APPOINTMENT, AND TEACHINGS RE: DM2, HTN, VITALS MONITORING, DIET, EXERCISE. ALL QUESTIONS WERE ANSWERED. PT VERBALIZED UNDERSTANDING. ALL FORMS WERE SIGNED.
--- NOTE | 2017-08-02 18:00 | NUR ---
ALL ID BANDS WERE REMOVED, TELE MONITOR REMOVED AND RETURNED TO TELE STATION, IV SITE AT RFA AND LH REMOVED, CATH TIPS INTACT, NO S/S INFECTION OR BLEEDING. PT WAS THEN TRANSPORTED TO [facility] VIA W/C, ACCOMPANIED BY CHARGE NURSE AND PT'S DAUGHTER. PT WAS THEN PICKED UP BY PRIVATE AUTO. A/A/O X 4, CALM, COOPERATIVE. NO RESPIRATORY DISTRESS, PAIN, OR DISCOMFORT.
== END 2017-08-02 18:05 | disposition home or self-care (01) | DRG 201 ==
LOC: ED 18:16 → DU 20:33
PROVIDERS: Emergency Medicine; Family Medicine Sports Medicine; ADMIT Student in an Organized Health Care Education/Training Program
DX: I48.91 Unspecified atrial fibrillation (principal); N17.0 Acute kidney failure with tubular necrosis; I50.43 Acute on chronic combined systolic (congestive) and diastolic (congestive) heart failure; E44.0 Moderate protein-calorie malnutrition; D68.69 Other thrombophilia; D69.6 Thrombocytopenia, unspecified; E87.1 Hypo-osmolality and hyponatremia; J44.1 Chronic obstructive pulmonary disease with (acute) exacerbation; B18.2 Chronic viral hepatitis C; K42.9 Umbilical hernia without obstruction or gangrene; E78.1 Pure hyperglyceridemia; K21.9 Gastro-esophageal reflux disease without esophagitis; R80.9 Proteinuria, unspecified; Z99.81 Dependence on supplemental oxygen; Z87.891 Personal history of nicotine dependence; Z79.84 Long term (current) use of oral hypoglycemic drugs; E11.9 Type 2 diabetes mellitus without complications; Z88.6 Allergy status to analgesic agent; Z88.8 Allergy status to other drugs, medicaments and biological substances; E66.01 Morbid (severe) obesity due to excess calories; I11.0 Hypertensive heart disease with heart failure; Z83.3 Family history of diabetes mellitus; Z82.49 Family history of ischemic heart disease and other diseases of the circulatory system; Z68.43 Body mass index [BMI] 50.0-59.9, adult
CPT/HCPCS: 82962; 83880; 84439; J2270; J2405; J3490; J7030; J7040; J7620; Q0092

== ENCOUNTER 2017-08-27 20:29 | Observation (INO) | payer OTHER ==
[~2017-08-27] VITALS: Ht 162.6 cm; Wt 148.5 kg
[~2017-08-27 20:29] MED LIST changes: +MYCOC TOP; +XARELTO10 M1 PO
[2017-08-27 21:36] LABS: BASOPHIL % 0.7 % (0-2)
[2017-08-27 21:37] LABS: PLATELET COUNT 93 x10^3mcL (130-400); RED CELL DISTRIBUTION WIDTH 15.3 % (11.5-14.5)
[2017-08-27 21:47] LABS: CALCIUM 8.4 mg/dL (8.5-10.1); CHLORIDE SERUM 108 mmol/L (98-107); CREATININE SERUM 0.9 mg/dL (0.6-1.0); GFR1 > 60 mL/min; GLUCOSE SERUM 121 mg/dL (74-106); POTASSIUM SERUM 3.8 mmol/L (3.5-5.1); SODIUM SERUM 144 mmol/L (136-145)
[2017-08-27 21:57] LABS: PHOSPHOROUS 3.8 mg/dL (2.5-4.9)
[2017-08-27 22:23] LABS: CK-MB 0.8 ng/mL (0-3.6)
[2017-08-27] MEDS ORDERED: CARVEDILOL25 M1 PO (22:27)
[2017-08-27] MEDS ORDERED: HYDRALAZINE HCL25 MG PO (22:28)
[2017-08-27] MEDS ORDERED: METFORMIN HCL850 MG PO (22:28)
[2017-08-27] MEDS ORDERED: AMARYL4 MG PO (22:28)
[2017-08-27] MEDS ORDERED: ACT30 PO (22:28)
[2017-08-27] MEDS ORDERED: NOR5 PO (22:28)
[2017-08-27] MEDS ORDERED: FUROSEMIDE40 MG PO (22:30)
[2017-08-27] MEDS ORDERED: ASPIR 8181 MG PO (22:30)
[2017-08-27] MEDS ORDERED: POTASSIUM CHLO10 MEQ PO (22:30)
[2017-08-27] MEDS ORDERED: LISINOPRIL40 MG PO (22:31)
[2017-08-27] MEDS ORDERED: ATORVASTATIN CA40 M1 PO (22:31)
[2017-08-27] MEDS ORDERED: XARELTO10 M1 PO (22:31)
[2017-08-27 23:17] VITALS: BP 152/73
[2017-08-27 23:20] VITALS: Ht 162.6 cm; Wt 148.5 kg
[2017-08-28 00:40] VITALS: BP 156/69
[2017-08-28 03:23] LABS: CHOLESTEROL/HDL RATIO 1.8
[2017-08-28 03:35] LABS: FREE T4 1.44 ng/dL (0.76-1.46); FREE THYROXINE INDEX 3.3 ug/dL (1.4-4.5); T4(THYROXINE) 8.8 ug/dL (4.7-13.3)
[2017-08-28 05:36] VITALS: BP 156/69
[2017-08-28 07:06] LABS: CARBON DIOXIDE 28.6 mmol/L (21-32); CHLORIDE SERUM 108 mmol/L (98-107); CREATININE SERUM 0.7 mg/dL (0.6-1.0); GFR1 > 60 mL/min; GLUCOSE SERUM 101 mg/dL (74-106); POTASSIUM SERUM 3.5 mmol/L (3.5-5.1); SODIUM SERUM 145 mmol/L (136-145)
[2017-08-28 07:14] LABS: BASOPHIL % 0.4 % (0-2)
[2017-08-28 07:18] LABS: PLATELET COUNT 80 x10^3mcL (130-400); RED CELL DISTRIBUTION WIDTH 15.4 % (11.5-14.5)
[2017-08-28 08:02] LABS: UA SPECIFIC GRAVITY 1.025 (1.005-1.035); microscopic required? YES; urine erythrocyte NEGATIVE (NEGATIVE)
[2017-08-28 08:18] LABS: AMPHETAMINE QUAL UR NONE DETECTED (NEG <=1000)
[2017-08-28 09:23] VITALS: BP 148/70
[2017-08-28 14:41] VITALS: BP 119/59
[2017-08-28] MEDS ORDERED: AUGMENTIN 875-1 EACH PO (15:56)
[2017-08-28 16:04] LABS: T3 TOTAL 1.01 ng/mL
[2017-08-28 16:24] VITALS: BP 119/59
== END 2017-08-28 18:00 | disposition home or self-care (01) | DRG 137 ==
LOC: ED 20:29 → DU 22:23
PROVIDERS: Emergency Medicine; ADMIT Student in an Organized Health Care Education/Training Program
DX: J69.0 Pneumonitis due to inhalation of food and vomit (principal); N17.0 Acute kidney failure with tubular necrosis; D68.69 Other thrombophilia; E11.59 Type 2 diabetes mellitus with other circulatory complications; E11.65 Type 2 diabetes mellitus with hyperglycemia; Z68.43 Body mass index [BMI] 50.0-59.9, adult; I48.2 Chronic atrial fibrillation; K21.9 Gastro-esophageal reflux disease without esophagitis; M94.0 Chondrocostal junction syndrome [Tietze]; I16.0 Hypertensive urgency; I10 Essential (primary) hypertension; J44.9 Chronic obstructive pulmonary disease, unspecified; E66.3 Overweight; Z79.01 Long term (current) use of anticoagulants; Z79.84 Long term (current) use of oral hypoglycemic drugs; Z87.891 Personal history of nicotine dependence
CPT/HCPCS: 82962; 83880; 84439; G0378; J7030; J7620; Q0092

== ENCOUNTER 2017-09-06 12:02 | Emergency (ER) | payer OTHER ==
[~2017-09-06] VITALS: Ht 162.6 cm; Wt 146.5 kg
[~2017-09-06 12:02] MED LIST changes: +ATORVASTATIN CA40 M1 PO; +AUGMENTIN 875-1 EACH PO; +HYDRALAZINE HCL25 MG PO
[2017-09-06 13:34] LABS: BASOPHIL % 0.4 % (0-2)
[2017-09-06 13:42] LABS: PLATELET COUNT 101 x10^3mcL (130-400); RED CELL DISTRIBUTION WIDTH 15.3 % (11.5-14.5)
[2017-09-06 13:51] LABS: ALKALINE PHOSPHATASE 79 U/L (46-116); ALT/SGPT 36 U/L (14-59); AST/SGOT 19 U/L (15-37); BILIRUBIN TOTAL 1.3 mg/dL (0.20-1.00); CALCIUM 8.2 mg/dL (8.5-10.1); CARBON DIOXIDE 29.3 mmol/L (21-32); CHLORIDE SERUM 107 mmol/L (98-107); CREATININE SERUM 0.7 mg/dL (0.6-1.0); GFR1 > 60 mL/min; POTASSIUM SERUM 3.4 mmol/L (3.5-5.1); SODIUM SERUM 146 mmol/L (136-145); TOTAL PROTEIN, SERUM 6.5 g/dL (6.4-8.2)
[2017-09-06 13:53] LABS: ALBUMIN 3.1 g/dL (3.4-5.0); GLUCOSE SERUM 54 mg/dL (74-106)
[2017-09-06 16:36] VITALS: BP 111/61
== END 2017-09-06 16:34 | disposition home or self-care (01) ==
LOC: ED 12:02
PROVIDERS: Emergency Medicine
DX: R07.89 Other chest pain (principal); E11.9 Type 2 diabetes mellitus without complications; I10 Essential (primary) hypertension; J44.9 Chronic obstructive pulmonary disease, unspecified; I50.9 Heart failure, unspecified; E78.00 Pure hypercholesterolemia, unspecified; Z88.5 Allergy status to narcotic agent; Z88.1 Allergy status to other antibiotic agents
CPT/HCPCS: 36415; 82962; 83880; J1885; Q0092

== ENCOUNTER 2017-11-08 00:47 | Inpatient (IN) | payer OTHER ==
[~2017-11-08] VITALS: Ht 162.6 cm; Wt 107.0 kg
[2017-11-08 02:48] LABS: CALCIUM 8.6 mg/dL (8.5-10.1); CARBON DIOXIDE 30.5 mmol/L (21-32); CHLORIDE SERUM 102 mmol/L (98-107); CREATININE SERUM 0.7 mg/dL (0.6-1.0); GFR1 > 60 mL/min; GLUCOSE SERUM 105 mg/dL (74-106); POTASSIUM SERUM 3.6 mmol/L (3.5-5.1); SODIUM SERUM 141 mmol/L (136-145)
[2017-11-08 02:52] LABS: ALBUMIN 3.7 g/dL (3.4-5.0); ALKALINE PHOSPHATASE 72 U/L (46-116); ALT/SGPT 26 U/L (14-59); AST/SGOT 19 U/L (15-37); BILIRUBIN TOTAL 2.56 mg/dL (0.20-1.00); TOTAL PROTEIN, SERUM 7.2 g/dL (6.4-8.2)
[2017-11-08 03:04] LABS: RED CELL DISTRIBUTION WIDTH 14.2 % (11.5-14.5)
[2017-11-08 03:11] LABS: BASOPHIL % 2.2 % (0-2); PLATELET COUNT 89 x10^3mcL (130-400)
[2017-11-08 03:58] LABS: microscopic required? NO
[2017-11-08 04:18] LABS: UA SPECIFIC GRAVITY 1.015 (1.005-1.035); urine erythrocyte NEGATIVE (NEGATIVE)
[2017-11-08 04:40] VITALS: BP 168/60
[2017-11-08 05:40] VITALS: BP 168/69
[2017-11-08 09:48] VITALS: BP 122/58
[2017-11-08 13:45] VITALS: BP 139/58
[2017-11-08 17:23] VITALS: BP 150/68
[2017-11-08 21:21] VITALS: BP 123/59
[2017-11-09 05:34] VITALS: BP 151/64
[2017-11-09 07:24] LABS: CALCIUM 8.5 mg/dL (8.5-10.1); CARBON DIOXIDE 29.5 mmol/L (21-32); CHLORIDE SERUM 103 mmol/L (98-107); CREATININE SERUM 0.7 mg/dL (0.6-1.0); GFR1 > 60 mL/min; GLUCOSE SERUM 179 mg/dL (74-106); POTASSIUM SERUM 3.3 mmol/L (3.5-5.1); SODIUM SERUM 142 mmol/L (136-145)
[2017-11-09 08:07] LABS: BASOPHIL % 0 % (0-2); PLATELET COUNT 86 x10^3mcL (130-400); RED CELL DISTRIBUTION WIDTH 15.1 % (11.5-14.5)
[2017-11-09 10:28] VITALS: BP 136/52
[2017-11-09 12:09] VITALS: BP 142/67
[2017-11-09] MEDS ORDERED: TAM75 PO (16:19)
[2017-11-09] MEDS ORDERED: ZIT250 PO (16:20)
[2017-11-09 16:52] VITALS: BP 142/67
[2017-11-09 17:04] VITALS: BP 142/63
== END 2017-11-09 18:05 | disposition home or self-care (01) | DRG 140 ==
LOC: ED 00:47 → DU 03:54
PROVIDERS: Emergency Medicine; Internal Medicine Pulmonary Disease
DX: J44.1 Chronic obstructive pulmonary disease with (acute) exacerbation (principal); I11.0 Hypertensive heart disease with heart failure; I50.9 Heart failure, unspecified; I48.91 Unspecified atrial fibrillation; B18.2 Chronic viral hepatitis C; Z88.6 Allergy status to analgesic agent; Z88.8 Allergy status to other drugs, medicaments and biological substances; E11.9 Type 2 diabetes mellitus without complications; E78.00 Pure hypercholesterolemia, unspecified; J11.1 Influenza due to unidentified influenza virus with other respiratory manifestations; R09.02 Hypoxemia
CPT/HCPCS: 82962; 83880; 87804; 94150; J0696; J1940; J2270; J2920; J2930; J3490; J7613; J7620; J7644; Q0092

== ENCOUNTER 2017-12-21 18:45 | Inpatient (IN) | payer OTHER ==
[~2017-12-21] VITALS: Ht 162.6 cm; Wt 149.7 kg
[~2017-12-21 18:45] MED LIST changes: +TAM75 PO; +ZIT250 PO
[2017-12-21 19:09] VITALS: Ht 162.6 cm; Wt 149.7 kg
[2017-12-21 20:49] LABS: BASOPHIL % 0.4 % (0-2)
[2017-12-21 20:51] LABS: PLATELET COUNT 100 x10^3mcL (130-400); RED CELL DISTRIBUTION WIDTH 15.5 % (11.5-14.5)
[2017-12-21 21:33] LABS: CALCIUM 8.3 mg/dL (8.5-10.1); CARBON DIOXIDE 28.2 mmol/L (21-32); CHLORIDE SERUM 106 mmol/L (98-107); CREATININE SERUM 0.6 mg/dL (0.6-1.0); GFR1 > 60 mL/min; GLUCOSE SERUM 82 mg/dL (74-106); POTASSIUM SERUM 3.4 mmol/L (3.5-5.1); SODIUM SERUM 145 mmol/L (136-145)
[2017-12-21 21:38] LABS: ALKALINE PHOSPHATASE 71 U/L (46-116); ALT/SGPT 25 U/L (14-59); AST/SGOT 21 U/L (15-37); BILIRUBIN TOTAL 1.27 mg/dL (0.20-1.00); TOTAL PROTEIN, SERUM 6.6 g/dL (6.4-8.2)
[2017-12-21 21:42] LABS: ALBUMIN 3.3 g/dL (3.4-5.0)
[2017-12-22 05:02] VITALS: BP 148/76
[2017-12-22 06:04] VITALS: BP 146/76
[2017-12-22 10:16] VITALS: BP 156/61
[2017-12-22 13:27] VITALS: BP 154/64
[2017-12-22 14:16] VITALS: BP 154/64
== END 2017-12-22 16:33 | disposition home or self-care (01) | DRG 198 ==
LOC: ED 18:45 → DU 12-22 04:10
PROVIDERS: Emergency Medicine
DX: R07.89 Other chest pain (principal); I25.10 Atherosclerotic heart disease of native coronary artery without angina pectoris; E66.01 Morbid (severe) obesity due to excess calories; I10 Essential (primary) hypertension; E11.9 Type 2 diabetes mellitus without complications; E78.00 Pure hypercholesterolemia, unspecified; Z88.6 Allergy status to analgesic agent; Z88.8 Allergy status to other drugs, medicaments and biological substances; I48.0 Paroxysmal atrial fibrillation; M79.7 Fibromyalgia; E78.5 Hyperlipidemia, unspecified
CPT/HCPCS: 82962; 83880; J1200; J1885; J2270; J2405

== ENCOUNTER 2018-05-30 10:51 | Emergency (ER) | payer OTHER ==
[~2018-05-30] VITALS: Ht 162.6 cm; Wt 147.9 kg
[2018-05-30 10:58] VITALS: Ht 162.6 cm; Wt 147.9 kg
[2018-05-30 11:27] LABS: microscopic required? NO
[2018-05-30 11:43] LABS: BASOPHIL % 0.3 % (0-2)
[2018-05-30 11:48] LABS: PLATELET COUNT 103 x10^3mcL (130-400); RED CELL DISTRIBUTION WIDTH 15.4 % (11.5-14.5)
[2018-05-30 11:50] LABS: UA SPECIFIC GRAVITY 1.015 (1.005-1.035); urine erythrocyte NEGATIVE (NEGATIVE)
[2018-05-30 12:07] LABS: CALCIUM 8.6 mg/dL (8.5-10.1); CARBON DIOXIDE 33.6 mmol/L (21-32); CHLORIDE SERUM 107 mmol/L (98-107); CREATININE SERUM 0.8 mg/dL (0.6-1.0); GFR1 > 60 mL/min; GLUCOSE SERUM 122 mg/dL (74-106); POTASSIUM SERUM 3.7 mmol/L (3.5-5.1); SODIUM SERUM 145 mmol/L (136-145)
[2018-05-30 12:19] LABS: ALBUMIN 3.5 g/dL (3.4-5.0); ALKALINE PHOSPHATASE 81 U/L (46-116); ALT/SGPT 25 U/L (14-59); AMYLASE 40 U/L (25-115); AST/SGOT 19 U/L (15-37); BILIRUBIN TOTAL 1.56 mg/dL (0.20-1.00); HDL CHOLESTEROL 47 mg/dL (40-60); LIPASE 133 IU/L (73-393); T4(THYROXINE) 8.2 ug/dL (4.7-13.3); TOTAL PROTEIN, SERUM 7.2 g/dL (6.4-8.2)
[2018-05-30 12:20] LABS: CHOLESTEROL 106 mg/dL (<200)
[2018-05-30 13:53] VITALS: BP 164/84
== END 2018-05-30 13:53 | disposition home or self-care (01) ==
LOC: ED 10:51
PROVIDERS: Emergency Medicine
DX: J44.9 Chronic obstructive pulmonary disease, unspecified (principal); Z99.81 Dependence on supplemental oxygen; E11.51 Type 2 diabetes mellitus with diabetic peripheral angiopathy without gangrene; E78.00 Pure hypercholesterolemia, unspecified; E66.01 Morbid (severe) obesity due to excess calories; I83.018 Varicose veins of right lower extremity with ulcer other part of lower leg; L97.819 Non-pressure chronic ulcer of other part of right lower leg with unspecified severity; B19.20 Unspecified viral hepatitis C without hepatic coma; I50.9 Heart failure, unspecified; I11.9 Hypertensive heart disease without heart failure; Z88.6 Allergy status to analgesic agent
CPT/HCPCS: 36415; 36600; 83880; Q0092

== ENCOUNTER 2019-09-17 09:16 | Inpatient (IN) | payer OTHER ==
[~2019-09-17] VITALS: Ht 162.6 cm; Wt 158.3 kg
[2019-09-17 10:17] LABS: BASOPHIL % 0.3 % (0-2)
[2019-09-17 10:18] LABS: PLATELET COUNT 114 x10^3mcL (130-400); RED CELL DISTRIBUTION WIDTH 15.1 % (11.5-14.5)
[2019-09-17 11:03] LABS: CALCIUM 8.2 mg/dL (8.5-10.1); CARBON DIOXIDE 31.4 mmol/L (21-32); CHLORIDE SERUM 104 mmol/L (98-107); CREATININE SERUM 0.8 mg/dL (0.6-1.0); GFR1 > 60 mL/min; GLUCOSE SERUM 109 mg/dL (74-106); POTASSIUM SERUM 4.3 mmol/L (3.5-5.1); SODIUM SERUM 145 mmol/L (136-145)
[2019-09-17 11:13] LABS: ALBUMIN 3.4 g/dL (3.4-5.0); ALKALINE PHOSPHATASE 106 U/L (46-116); ALT/SGPT 35 U/L (14-59); AST/SGOT 23 U/L (15-37); BILIRUBIN TOTAL 1.1 mg/dL (0.20-1.00); TOTAL PROTEIN, SERUM 6.9 g/dL (6.4-8.2)
[2019-09-17] MEDS ORDERED: NOR5 PO (14:01)
[2019-09-17] MEDS ORDERED: CARVEDILOL25 M1 PO (14:01)
[2019-09-17 15:05] VITALS: BP 177/71
[2019-09-17 15:08] VITALS: Ht 162.6 cm; Wt 158.3 kg
[2019-09-17 19:11] VITALS: BP 177/71
[2019-09-17 20:33] VITALS: BP 144/55
[2019-09-18 05:33] VITALS: BP 140/53
[2019-09-18 07:40] VITALS: BP 156/56
[2019-09-18 07:59] LABS: BASOPHIL % 0.3 % (0-2)
[2019-09-18 08:03] LABS: PLATELET COUNT 112 x10^3mcL (130-400)
[2019-09-18 08:04] LABS: CARBON DIOXIDE 29.8 mmol/L (21-32); CHLORIDE SERUM 102 mmol/L (98-107); CREATININE SERUM 0.9 mg/dL (0.6-1.0); GFR1 > 60 mL/min; GLUCOSE SERUM 89 mg/dL (74-106); POTASSIUM SERUM 3.3 mmol/L (3.5-5.1); SODIUM SERUM 140 mmol/L (136-145)
[2019-09-18 13:25] VITALS: BP 110/43
== END 2019-09-18 17:17 | disposition home or self-care (01) | DRG 139 ==
LOC: ED 09:16 → DU 13:30
PROVIDERS: ADMIT Internal Medicine Pulmonary Disease
DX: J18.9 Pneumonia, unspecified organism (principal); I11.0 Hypertensive heart disease with heart failure; E66.01 Morbid (severe) obesity due to excess calories; I50.9 Heart failure, unspecified; Z99.81 Dependence on supplemental oxygen; I48.20 Chronic atrial fibrillation, unspecified; E78.00 Pure hypercholesterolemia, unspecified; E11.9 Type 2 diabetes mellitus without complications; E78.5 Hyperlipidemia, unspecified; J44.9 Chronic obstructive pulmonary disease, unspecified; Z87.891 Personal history of nicotine dependence; Z79.01 Long term (current) use of anticoagulants; Z79.84 Long term (current) use of oral hypoglycemic drugs; Z88.5 Allergy status to narcotic agent; Z88.1 Allergy status to other antibiotic agents; Z79.899 Other long term (current) drug therapy
CPT/HCPCS: 83880; 85378; 87804; G0378; J0456; J0696; J2250; J7050; J7060; J7620

== ENCOUNTER 2020-05-30 20:48 | Emergency (ER) | payer OTHER ==
[~2020-05-30] VITALS: Ht 162.6 cm; Wt 166.9 kg
[2020-05-30 20:56] VITALS: Ht 162.6 cm; Wt 166.9 kg
== END 2020-05-31 00:43 | disposition home or self-care (01) ==
LOC: ED 20:48
DX: L03.115 Cellulitis of right lower limb (principal); J44.9 Chronic obstructive pulmonary disease, unspecified; I50.9 Heart failure, unspecified; I11.0 Hypertensive heart disease with heart failure; E11.9 Type 2 diabetes mellitus without complications; E78.00 Pure hypercholesterolemia, unspecified; Z88.5 Allergy status to narcotic agent; Z88.1 Allergy status to other antibiotic agents

== ENCOUNTER 2020-06-17 16:04 | Emergency (ER) | payer OTHER ==
[~2020-06-17] VITALS: Ht 162.6 cm; Wt 163.3 kg
[2020-06-17 16:14] VITALS: Ht 162.6 cm; Wt 163.3 kg
[2020-06-17 18:30] LABS: BASOPHIL % 0.8 % (0-2)
[2020-06-17 18:34] LABS: PLATELET COUNT 108 x10^3mcL (130-400); RED CELL DISTRIBUTION WIDTH 15.1 % (11.5-14.5)
[2020-06-17 18:41] LABS: CALCIUM 8.5 mg/dL (8.5-10.1); CARBON DIOXIDE 33.4 mmol/L (21-32); POTASSIUM SERUM 3.6 mmol/L (3.5-5.1)
[2020-06-17 18:45] LABS: microscopic required? YES; urine erythrocyte TRACE (NEGATIVE)
[2020-06-17 18:50] LABS: ALBUMIN 3.3 g/dL (3.4-5.0); BILIRUBIN TOTAL 1.54 mg/dL (0.20-1.00); TOTAL PROTEIN, SERUM 7.1 g/dL (6.4-8.2)
[2020-06-17 20:45] VITALS: BP 169/49
== END 2020-06-17 20:40 | disposition home or self-care (01) ==
LOC: ED 16:04
PROVIDERS: Emergency Medicine
DX: N12 Tubulo-interstitial nephritis, not specified as acute or chronic (principal); K76.0 Fatty (change of) liver, not elsewhere classified; E66.01 Morbid (severe) obesity due to excess calories; I50.9 Heart failure, unspecified; I10 Essential (primary) hypertension; E11.9 Type 2 diabetes mellitus without complications; Z86.19 Personal history of other infectious and parasitic diseases; E78.00 Pure hypercholesterolemia, unspecified; Z88.5 Allergy status to narcotic agent; Z88.1 Allergy status to other antibiotic agents
CPT/HCPCS: J0696; J1885; Q0092